=== PATIENT | female | born 1965 | race Two or more races ===

== ENCOUNTER 2020-03-04 10:15 | Emergency (ER) | payer SELFPAY ==
[~2020-03-04] VITALS: Ht 162.6 cm; Wt 68.0 kg
[2020-03-04 10:51] VITALS: BP 172/87
== END 2020-03-04 11:26 | disposition home or self-care (01) ==
LOC: ER 10:15
DX: S01.81XD Laceration without foreign body of other part of head, subsequent encounter (principal); X58.XXXD Exposure to other specified factors, subsequent encounter
CPT/HCPCS: 99281